=== PATIENT | female | born 1955 ===

== ENCOUNTER → 2023-11-24 | Outpatient (CLI) | payer OTHER | END | disposition home or self-care (01) | LOC: Rad HDHVI 14:24 | PROVIDERS: ATTEND Internal Medicine Cardiovascular Disease | DX: I10 Essential (primary) hypertension (principal) | CPT/HCPCS: 93306 ==

== ENCOUNTER → 2023-12-20 | Outpatient (CLI) | payer OTHER ==
[~2023-12-20] VITALS: Ht 170.2 cm; Wt 73.5 kg
== END | disposition home or self-care (01) ==
LOC: Rad HDHVI 12:31
PROVIDERS: ATTEND Internal Medicine Cardiovascular Disease
DX: Z13.6 Encounter for screening for cardiovascular disorders (principal); R00.1 Bradycardia, unspecified; I49.1 Atrial premature depolarization; I49.3 Ventricular premature depolarization; I10 Essential (primary) hypertension; J44.9 Chronic obstructive pulmonary disease, unspecified; R00.2 Palpitations; R06.02 Shortness of breath; R07.89 Other chest pain; Z82.49 Family history of ischemic heart disease and other diseases of the circulatory system
CPT/HCPCS: 78452; 93017; 96374; A9500